=== PATIENT | female | born 1965 | race Caucasian/White ===

== ENCOUNTER 2016-09-20 23:47 | Emergency (ER) | payer OTHER ==
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
== END 2016-09-21 01:20 | disposition home or self-care (01) ==
LOC: ER 23:47
DX: S80.11XA Contusion of right lower leg, initial encounter (principal); V43.62XA Car passenger injured in collision with other type car in traffic accident, initial encounter